=== PATIENT | male | born 1960 | race Caucasian/White ===

== ENCOUNTER 2016-11-08 11:50 | Emergency (ER) | payer OTHER ==
[~2016-11-08] VITALS: Ht 180.3 cm; Wt 97.1 kg
[~2016-11-08 11:50] MED LIST: ALBUAER2 INH; ASPEC81 PO; CLX20 PO; LEVO125T4 PO; LOSA100T66 PO; LPT/20 PO; QUET5TAB PO
[2016-11-08 11:56] VITALS: TEMP 36.7; Ht 180.3 cm; Wt 97.1 kg
[2016-11-08] MEDS ORDERED: ACETAMINOPHEN 500 MG TAB PO STA (12:14)
[2016-11-08] MEDS ORDERED: CLX40 PO (12:24)
[2016-11-08] MEDS ORDERED: FLUT1INH (12:24)
[2016-11-08] MEDS ORDERED: ASPI-435 PO (12:24)
[2016-11-08] MEDS ORDERED: VNTHFA/IN INH (12:24)
--- NOTE | 2016-11-08 12:31 | EMERGENCY ROOM VISIT NOTE ---
ED Visit Note First contact with patient: 12:02 CHIEF COMPLAINT: Foot pain HISTORY OF PRESENT ILLNESS: This 56-year-old male patient presents to the emergency department complaining of swelling and pain in the left great toe after dropping a 30 lb iron clamp on his toe. He was wearing boots at the time. The patient rates the pain as throbbing and 6/10. The patient has had no relief of the pain. The patient is able to walk on his heel, but cannot put weight on the toe. No numbness or weakness. No ankle pain. There are no lacerations of the foot. The patient is able to move all of their toes and their ankle without pain. No previous fracture to this foot. REVIEW OF SYSTEMS: GENERAL: A 6 system review of systems was completed with positives and pertinent negatives in the HPI. ALLERGIES: See chart MEDICATIONS: See chart PMH: See chart SOCIAL HISTORY: See chart PHYSICAL EXAM: Vital Signs: Reviewed Nurse's notes, vital signs stable. GENERAL : Pleasant and cooperative, in no acute distress, but appears in pain, well- developed, well-nourished. MUSCULOSKELATAL: There is no visual deformity of the left foot. There is no erythema but there is ecchymosis and swelling of the left great toe. There is no warmth. There is tenderness and swelling over the entire left great toe. There is no tenderness over the lateral or medial malleolus. No tenderness of the tib/fib. The range of motion of the left great toe is mildly limited secondary to pain. There is no tenderness over the plantar fascia. The skin is intact and there are no lacerations or puncture wounds. Dorsalis pedis pulse 2+. Capillary refill less than 2 seconds. EMERGENCY DEPARTMENT COURSE: I examined the patient. An X-ray of the left foot and great toe was reviewed by myself and radiologist and reveals acute fracture. The patient was placed in fracture shoe. He declined crutches. The patient was discharged home in good condition. Problem List Medical Problems: (1) Bronchitis Status: Resolved (2) COPD (chronic obstructive pulmonary disease) Status: Chronic (3) Hyperlipidemia Nec/Nos Status: Chronic (4) Hypertension Status: Chronic (5) Hypothyroidism Nos Status: Chronic (6) Pneumonia Status: Resolved Current/Historical Medications Scheduled Albuterol Hfa (Ventolin Hfa), 2-4 PUFFS INH Q6H Aspirin (Aspirin 81), 81 MG PO DAILY Atorvastatin (Atorvastatin Calcium), 20 MG PO DAILY Citalopram (Citalopram Hydrobromide), 40 MG PO DAILY Levothyroxine Sodium (Levothyroxine Sodium), 125 MCG PO DAILY Losartan Potassium & Hydrochlo (Losartan Potassium/Hydroc), 1 TAB PO DAILY Miscellaneous Medications Fluticasone Furoate-Vilanterol (Breo Ellipta) Allergies Coded Allergies: No Known Allergies (Verified , 11/08/16) Vital Signs Date Time Temp Pulse Resp B/P (MAP) Pulse Ox O2 Delivery O2 Flow Rate FiO2 11/08/16 14:28 54 16 182/86 94 11/08/16 11:56 36.7 61 17 164/75 96 Room Air Medications Administered Medications (Trade) Dose Ordered Sig/Lyle Route Start Time Stop Time Status Last Admin Dose Admin Acetaminophen (Tylenol Tab) 1,000 mg NOW STAT PO 11/08/16 12:14 11/08/16 12:17 DC 11/08/16 12:25 1,000 MG Departure Information Impression Primary Impression: Closed fracture of left great toe Dispostion Home / Self-Care Condition GOOD Referrals Shelley Montero D.O. (PCP) Garcia Guerrier, DO Patient Instructions ED Fx Toe Closed, My [facility] Additional Instructions Ice and elevation for the next two days. Stay off of the left foot as much as possible for the next few days to allow for swelling to go down. Ibuprofen, 600mg and Tylenol 1000 mg every 6 hours for the pain. Avoid weight bearing and use post-op shoe until the pain subsides and you can walk without a limp. Follow up with the orthopedic surgeon in 5-7 days for further management of your broken toe. Work Instructions Return To Work: after follow-up (orthopedics ) Problem Qualifiers Primary Impression: Closed fracture of left great toe Encounter type: initial encounter Phalanx: distal Fracture alignment: nondisplaced Qualified Codes: S92.425A - Nondisplaced fracture of distal phalanx of left great toe, initial encounter for closed fracture
--- NOTE | 2016-11-08 13:12 | DIAGNOSTIC IMAGING REPORT ---
LEFT TOE(S) MIN 2 VIEWS, LEFT FOOT MIN 3 VIEWS ROUTINE HISTORY:56 yearsMaledropped iron clamp on great toe, dorsum of foot COMPARISON: None available. TECHNIQUE: 3 views of the left great toe and 3 views of the left foot. FINDINGS: Foot: Comminuted fracture of the first distal phalanx is noted with moderate soft tissue swelling. There is no additional acute fracture or dislocation identified. There is mild spurring of the plantar insertion site about the calcaneus. Negative for radiopaque foreign body. Toes: There is a comminuted fracture involving the mid and distal portions of the first distal phalanx with moderate degree of surrounding soft tissue swelling. No significant displacement, however the lateral view is suboptimal. No intra-articular extension is seen. IMPRESSION: 1. Comminuted nondisplaced acute first distal phalanx fracture. 2. No additional acute fracture or dislocation identified involving the left foot. The above report was generated using voice recognition software. It may contain grammatical, syntax or spelling errors. Electronically signed by: Dawson Smith M.D. 11/08/2016 1:11 PM Dictated Date/Time: 11/08/2016 1:08 PM
[2016-11-08 14:28] VITALS: BP 182/86; PULSE 54; O2SAT 94
[2016-12-13] MEDS ORDERED: ATOR80TA PO (06:57)
[2016-12-13] MEDS ORDERED: UMEC1INH INH (06:57)
[2016-12-13] MEDS ORDERED: ISOS30TA3 PO (06:57)
[2016-12-13] MEDS ORDERED: ESCI1TAB10 PO (06:57)
[2016-12-13] MEDS ORDERED: TRMO2580 TOP (06:57)
[2016-12-13] MEDS ORDERED: PRLSR20 PO (06:57)
[2016-12-13] MEDS ORDERED: MECL1TAB42 PO (06:57)
== END 2016-11-08 14:30 | disposition home or self-care (01) ==
LOC: C.EDB 11:52 → C.EDD 14:30
DX: S92.425A Nondisplaced fracture of distal phalanx of left great toe, initial encounter for closed fracture (principal); W22.8XXA Striking against or struck by other objects, initial encounter; E03.9 Hypothyroidism, unspecified; I10 Essential (primary) hypertension; E78.5 Hyperlipidemia, unspecified

== ENCOUNTER → 2016-12-13 | Day surgery (SDC) | payer OTHER ==
[~2016-12-13] VITALS: Ht 177.8 cm; Wt 94.0 kg
[~2016-12-13] MED LIST changes: +ACETAMINOPHEN 325 MG TAB PO PRN; -ALBUAER2 INH; -ASPEC81 PO; +ASPI-435 PO; +ATOR80TA PO; -CLX20 PO; +CLX40 PO; +ESCI1TAB10 PO; +FENTANYL CITRATE INJ 50 MCG/1 ML 2 ML VIAL ONE; +FLUT1INH; +HEPARIN SOD (PORCINE) 1000 UNIT/ML 10 ML VIAL ONE; +ISOS30TA3 PO; +ISOSORBIDE MONONITRATE 30 MG TABCR PO ONE; +MECL1TAB42 PO; +MIDAZOLAM HCL 1 MG/ML 2ML VIAL ONE; +NITROGLYCERIN/D5W 100MCG/ML 20ML SYR ONE; +NiCARDipine HCL INJ 2.5 MG/ML 10 ML AMP ONE; +ONDANSETRON INJ 2 MG/ML 2 ML VIAL IV PRN; +PRLSR20 PO; -QUET5TAB PO; +SODIUM CHLORIDE 0.9% 1000ML 250 ML IV PRN; +TRMO2580 TOP; +UMEC1INH INH; +VNTHFA/IN INH
[2016-12-13 07:14] VITALS: BP 188/71; PULSE 58; TEMP 36.8; O2SAT 96; Ht 177.8 cm; Wt 94.0 kg
--- NOTE | 2016-12-13 09:36 | Procedure Note ---
Pre-Mod Sedation Assessment General Date of Moderate Sedation: Dec 13, 2016. Vital Signs: Vital Signs Past 12 Hours Date Time Temp Pulse Resp B/P (MAP) Pulse Ox O2 Delivery O2 Flow Rate FiO2 12/13/16 09:24 52 16 140/80 (100) 96 Room Air 12/13/16 07:14 36.8 58 16 188/71 96 Room Air Review Cardiovascular: regular rate, rhythm, no edema, no gallop, no JVD Abdomen: normal bowel sounds, non tender, soft Lungs: no respiratory distress, no accessory muscle use, + wheezing (mild end expiratory left sided wheeze) Pre-Sedation Airway Assessment Oral Cavity: Dentures Short Thick Neck: No Hx of Sleep Apnea: No Smoking Status: Current Every Day Smoker Mallampati Classification: Class III ASA Classification: Class III Procedure Planning Contraindications-for Mod Sed: None Yes Notes The planned sedation has been discussed with the patient and consent obtained. I have identified the patient, determined the appropriateness of sedation and have assessed the patient immediately prior to the procedure. All medicine(s) and interventions are by my order.
--- NOTE | 2016-12-13 09:37 | Procedure Note ---
Post-Mod Sedation Assessment General Date of Moderate Sedation Dec 13, 2016. Vital Signs: Vital Signs Past 12 Hours Date Time Temp Pulse Resp B/P (MAP) Pulse Ox O2 Delivery O2 Flow Rate FiO2 12/13/16 09:24 52 16 140/80 (100) 96 Room Air 12/13/16 07:14 36.8 58 16 188/71 96 Room Air Review - Discharge Criteria Vital Signs Stable: Yes Alert/Oriented/Conversant: Yes Returned to Baseline Mental St: Yes Nausea Absent/Minimal: Yes Pain/Discomfort/Absent/Minimal: Yes Normal/Baseline Respirations: Yes Active Bleeding?: No Pt Received D/C Instructions: Yes Prescriptions Given: None Specific Proced. D/C Criteria Distal Pulses Present (Cardiac: Yes Groin site assessed-Card Cath: N/A Voided Prior To Discharge: N/A Discharged Patients Adult Escort/Transportation: Yes
--- NOTE | 2016-12-13 09:58 | Cardiac Catheterization ---
Procedure Note Procedure Date Dec 13, 2016. Pre-Procedure Diagnosis Angina, Positive Stress Test AUC Score 8 Post-Procedure Diagnosis Moderate CAD Procedure(s) Performed Coronary Angiography, Left Heart Cath Caretaker Dr. Montero Barrel Tester And Drainer(s) Ricky RTR Estimated Blood Loss 5cc Medication(s) Fentanyl, Heparin, Nicardipine, Nitroglycerin, Versed, Lidocaine 1% Summary of Findings 50% proximal RCA Hemodynamics Rest Ao: 127/61/88 Final Ao: 145/65/95 LV: 136/7/12 Recommendations Medical therapy and/or Counseling Specimens None Radiation Exposure (mGy) 1751 Contrast (mls) 50 Anesthesia Moderate sedation. Start 0848. Stop 0924, Sedation RN: Jun King Procedural Complication(s) None Disposition Associate Store Leader Holding/Recovery ACC Data Cardiac Status Clinical evaluation leading to the procedure CAD Presntation: Positive Stress Test Anginal Classification: CCS II Heart Failure: No Cardiogenic Shock w/in 24Hrs: No Cardiac Arrest w/in 24Hrs: No Imaging studies past 6 months: No Stress studies past 6 months: Yes Standard Exercise Stress Test: No Stress Echocardiogram: No Stress Testing w/SPECT MPI: Yes - Indeterminant Cardiac CTA: No Coronary Anatomy Dominant: Right Left Main (% Stenosis): Ostial (10%) LAD (% Stenosis): Proximal (10%), Mid (10%), Distal (10%) D1 (% Stenosis): Proximal (30%) D2 (% Stenosis): Proximal (30%) D3 (% Stenosis): Ostial (20%) Circumflex (% Stenosis): Proximal (10%), Mid (20%) OM1 (% Stenosis): Normal RCA (% Stenosis): Proximal (50%, significant tortuosity), Mid (20%), Distal (10 %) R PDA (% Stenosis): Proximal (10%) R PL1 (% Stenosis): Ostial (30%), Proximal (10%), Mid (30%) R PL2 (% Stenosis): Ostial (20%) Diagnostic Status: Elective Closure Device Percutaneous Entry Location: Radial Closure Device: Radial Band Recommendations: Medical therapy and/or Counseling Intraprocedure Events Significant Dissection: No Perforation: No
--- NOTE | 2016-12-13 10:04 | Discharge Instructions ---
Discharge Instructions Procedure Procedure Date: Dec 13, 2016. Reason for Visit: Abnormal Nucular Stress Test, *Dr Montero Doing*. Discharge Discharge Date: Dec 13, 2016. Discharge Diagnosis: Moderate CAD Last Recorded Wt (Kilograms): 94 Anesthesia Post Anesthesia Instructions: If you have had General Anesthesia or IV Sedation: * Do not drive today. * Resume driving when surgeon permits. * Do not make important decisions or sign legal documents today. * Call surgeon for: 1. Temperature elevations greater than 101 degrees F. 2. Uncontrollable pain. 3. Excessive bleeding. 4. Persistent nausea and vomiting. 5. Medication intolerance (nausea, vomiting or rash). * For nausea and vomiting use only clear liquids such as: tea, soda, bouillon until nausea subsides, then gradually increase diet as tolerated. * If you have any concerns or questions, call your surgeon's office. If physician is unavailable and it is an emergency, call 911 or go to the nearest emergency room. Instructions Activity Recommendations: limitations as noted below Return to School/Work: with the following limitations Recommended Home Diet: resume previous diet, low sodium, low cholesterol Allergies: Coded Allergies: No Known Allergies (Verified , 11/08/16) Provider Instructions ACTIVITY RECOMMENDATIONS: Excess manipulation of the wrist should be avoided for the next 24-48 hours. * No lifting over 2 pounds (approximately a 1/2 gallon of milk) with the utilized arm for 24 hours. * No strenuous activity such as bowling or tennis for 3 days. * Keep the site of the procedure covered with a bandage for 24 hours. *You may shower the day after the procedure. Do not take a tub bath or submerge the puncture site in water for the next 3 days. *Do not operate any motorized equipment for 3 days. SPECIAL CARE INSTRUCTIONS: The site may be slightly bruised and sore following your procedure. Should any of the following occur, contact the DrDennise who performed your procedure. 1. Redness/inflammation, swelling, chills, or fever, or colored drainage at procedure site within 3-7 days after your procedure. 2. Coldness, discoloration, ongoing numbness, severe pain, or swelling. Expect mild tingling of hand and tenderness at the puncture site for up to three days. If this persists beyond three days, or other symptoms develop, notify the DrDennise who performed your procedure. BLEEDING: If the procedure site on your wrist begins to bleed, do not panic 1. Place 1 or 2 fingers firmly just slightly above the insertion site to stop the bleeding. You may be able to feel your pulse as you hold pressure. 2. Lift your finger after 5 minutes to see if the bleeding has stopped. 3. Once the bleeding has stopped, gently wipe the wrist area clean with a bandage. * If the bleeding from your wrist does not stop after 10 minutes, or if there is a large amount of bleeding or spurting, call 911 ([address] drive yourself to the hospital). SKIN IRRITATION: * You may experience some redness and/or swelling in the area where radiation was administered. If any skin irritation occurs, please contact your family physician. FOLLOW UP VISIT: Keep any scheduled doctor appointments. Follow Up Additional Instructions: Begin taking Imdur in the AM daily. Follow-up with: Dr. Coffey as scheduled. Blessing Velasquez Recommendations: Call your doctor if: * Temperature above 101 degrees * Pain not relieved by pain medicine ordered * There is increased drainage or redness from any incision * You have any unanswered questions or concerns. Your Doctors Instructions noted above were prepared by provider Andre Montero. Patient Signature Section: Patient Instructions Signature Page Luis Velázquez Patient (or Guardian) Signature/Date: I have read and understand the instructions given to me by my caregivers. Caregiver/RN/Doctor Signature/Date: The above-named patient and/or guardian has received patient instructions on this date. + Original Patient Signature Page (only) stays with chart. Please make copy for patient.
--- NOTE | 2016-12-13 11:05 | Progress Note ---
Progress Note Date of Service Dec 13, 2016. Progress Note Patient is excused from work duties until 12/18/16 due to recent medical procedure.
[2016-12-13 11:45] VITALS: BP 150/79; PULSE 55; O2SAT 99
== END | disposition home or self-care (01) ==
LOC: C.CATH 06:52
PROVIDERS: ATTEND Physician Assistant
DX: I25.10 Atherosclerotic heart disease of native coronary artery without angina pectoris (principal); I10 Essential (primary) hypertension; J44.9 Chronic obstructive pulmonary disease, unspecified; F17.210 Nicotine dependence, cigarettes, uncomplicated; E03.9 Hypothyroidism, unspecified; G47.30 Sleep apnea, unspecified; K21.9 Gastro-esophageal reflux disease without esophagitis; E78.5 Hyperlipidemia, unspecified; Z79.82 Long term (current) use of aspirin; Z83.3 Family history of diabetes mellitus

== ENCOUNTER 2022-05-05 03:15 | Inpatient (IN) ==
[2022-05-05 04:26] LABS: Basophils # (auto) 0.08 K/uL (0-0.2); Basophils % (auto) 0.4 %; Eosinophils # (auto) 0.17 K/uL (0-0.50); Eosinophils % (auto) 0.9 %; Hemoglobin 15.8 g/dl (14.0-18.0); Immature Granulocytes # (auto) 0.06 K/uL (0.00-0.02); Immature Granulocytes % (auto) 0.3 %; Lymphocytes # (auto) 1.98 K/uL (1.2-3.4); Lymphocytes % (auto) 10.6 %; Mean Corpuscular Hemoglobin 30.9 pg (25.0-34.0); Mean Corpuscular Hgb Conc 35.1 g/dL (32.0-36.0); Mean Corpuscular Volume 87.9 fL (80.0-100.0); Mean Platelet Volume 9.6 fL (9.4-12.4); Monocytes # (auto) 1.01 K/uL (0.24-0.82); Monocytes % (auto) 5.4 %; Neutrophils # (auto) 15.38 K/uL (1.4-6.5); Neutrophils % (auto) 82.4 %; Platelet Count 283 K/uL (130-400); RDW Coefficient of Variation 13.3 % (11.5-14.5); RDW Standard Deviation 43.1 fL (36.4-46.3); Red Blood Count 5.12 M/uL (4.63-6.08); White Blood Count 18.68 K/ul (4.8-10.8)
[2022-05-05 04:29] LABS: Appearance Urine Cloudy (Clear); Bacteria Urine Automated 4+ (Negative); Bilirubin Urine Negative (Negative); Blood Urine 3+ (Negative); Color Urine Yellow; Epithelial Cell Urine Auto 0-5 /lpf (0-5); Glucose Urine UA 3+ (Negative); Ketones Urine Negative (Negative); Leukocyte Esterase Urine 2+ (Negative); Nitrite Urine Positive (Negative); Protein Urine 2+ (Negative); RBC Urine Automated >30 /hpf (0-4); Specific Gravity Urine 1.021 (1.000-1.030); Urobilinogen Urine Negative (Negative); WBC Urine Automated >30 /hpf (0-5)
[2022-05-05] MEDS ORDERED: KETOROLAC 30 MG/ML VIAL IV ONE (04:34)
--- NOTE | 2022-05-05 04:34 | Emergency Department Note ---
Impression & Plan Cystitis, Acute pyelitis Admit to the [facility] ED Provider Note NAME: KRYSTIN BRANDT AGE: 61 SEX: M ARRIVES VIA: Walk-In INFORMANT: Patient ED PROVIDER(S): Inez Wynn DO CHIEF COMPLAINT: Bilateral flank pain PLAN: Disposition: Admit to the [facility] Condition: Fair MEDICAL DECISION MAKING: This is a 61-year-old male patient who presents to the emergency department with sudden onset of bilateral flank pain this evening. The patient took 2 Tylenol with no relief. Patient was diagnosed 2 weeks ago with a bladder infection and treated with antibiotics. The infection seem to be resolved but he developed dysuria again 2 days ago. Urinalysis reveals signs of infection again White blood cell count is 18.6. CT scan of the abdomen/pelvis nausea and involvement of both the bladder and the ureters. Patient was treated with IV Zosyn as previous urine culture shows E. coli which is susceptible to piperacillin/tazobactam. I believe the patient's initial infection was never fully treated on the outpatient basis. After review of the information above and other included data, I feel the patient will require admission to the hospital for further IV antibiotics. I discussed the case with the [facility] group and they will evaluate for further inpatient care. Triage Nursing notes reviewed and agree with them. Vital Signs: reviewed and remarkable for hypertension Differential diagnosis: Cystitis, pyelonephritis, ureteral colic, sepsis ER treatment provided: IV Toradol IV normal saline IV piperacillin/tazobactam Diagnostics interpreted by me: Laboratory studies: See below Imaging studies: As per radiology CT scan of the abdomen pelvis: See report HPI: 61/M arrives for evaluation of bilateral flank pain. Patient had a fairly sudden onset of bilateral flank pain around 7:30 PM this evening. He took 2 Tylenol with no relief. Patient was diagnosed with UTI/cystitis 2 weeks ago and was initially treated with Bactrim. Urine culture grew out E. coli which was not susceptible to Bactrim so was therefore switched to Keflex. This antibiotic was finished approximately 5 days ago. However, the patient began to develop dysuria again just 2 days ago. PAST MEDICAL HISTORY:See Below PAST SURGICAL HISTORY:See Below FAMILY HISTORY:See Below SOCIAL HISTORY:See Below HOME MEDICATIONS: See list ALLERGIES: None VITALS:See Below PHYSICAL EXAMINATION: HEENT: Head - normocephalic and atraumatic. Pupils are equal, round, and reactive to light. Extraocular eye muscles are intact, and sclera are anicteric. Nose - moist nasal mucosa without discharge. Mouth - moist buccal mucosa. Oropharynx is nonerythematous and there is no tonsillar exudate or edema noted. Neck: Supple; no JVD or cervical lymphadenopathy Heart: Regular rate and rhythm. There is a normal S1 and S2 with no murmurs, clicks, or gallops appreciated. Lungs: Clear to auscultation bilaterally with no wheezes, rales, or rhonchi. Abdomen: Soft, completely nontender, nondistended, with good bowel sounds. There are no palpable pulsatile masses or hepatosplenomegaly. There is no guarding, rigidity, or rebound noted. Back: Bilateral costovertebral angle tenderness on palpation. Extremities: No evidence of cyanosis, clubbing, or edema. There are easily palp able peripheral pulses. Skin: warm and dry with good turgor and no rashes. ED COURSE: Times/Reassessments: 350: The patient was evaluated in room A-3. A complete history and physical was performed. An IV lock was initiated and labs were drawn as above. Patient was bolused with IV normal saline solution. He was given a dose of IV Toradol for pain. Urine specimen was collected. The patient went for CT scan of the abdomen/pelvis. Patient was given a dose of IV antibiotics I reviewed the results of the laboratory studies with the patient and discussed the case with the [facility]. Inez Wynn DO Past Med/Surg History Medical History (Updated 05/05/22 @ 16:19 by Valentine Chan PA-C) Anxiety COPD (chronic obstructive pulmonary disease) Depression Diabetes mellitus, type II DM type 2 (diabetes mellitus, type 2) diet controlled Dyslipidemia GERD (gastroesophageal reflux disease) Hypertension Hypothyroidism Osteoarthritis Surgical History History of arthroscopy of left knee History of cardiac cath 1 year ago - [facility] - no stents/angioplasty History of colonoscopy with polypectomy History of esophagogastroduodenoscopy (EGD) History of hand surgery Lt History of tooth extraction Family History Uncle Family history of diabetes mellitus Brother Family history of diabetes mellitus Mother Pancreatic cancer Social History Smoking Status: Current every day smoker Tobacco Type: Cigarettes Cigarettes Per Day: 1.5 ppd; Second Hand Exposure: No; Do You Dip or Chew Tobacco: No; Tobacco Cessation Education Requested by Patient: Yes Hx Alcohol Use: No Hx Substance Use: No Preferred Language: Georgian Communication Ability: Effective Farm Advisor Required: No Beliefs That Will Affect Care: None Current Living Situation: Spouse Other Information That Helps Us Care for You: No Feels Safe at Home: Yes Safety Concerns: Feels Safe At This Time Assistive Devices: Denture - Upper, Denture - Lower, Glasses and Oxygen - at Night Assistive Devices Comment: 2L at night Allergies Allergies Allergy/AdvReac Type Severity Reaction Status Date / Time No Known Allergies Allergy Mild Verified 12/02/20 13:13 Home Meds Home Medications Medication Instructions Recorded Confirmed albuterol sulfate 90 mcg/actuation 2 - 4 puff inhalation Q6H PRN 01/28/18 05/05/22 aerosol inhaler (Ventolin HFA) Shortness Of Breath aspirin 81 mg tablet,delayed 81 mg PO QAM 01/28/18 05/05/22 release (Gerson Low Dose Aspirin) atorvastatin 80 mg tablet (Lipitor) 80 mg PO QPM 01/28/18 05/05/22 escitalopram oxalate 20 mg tablet 20 mg PO QAM 01/28/18 05/05/22 isosorbide mononitrate 30 mg 30 mg PO QAM 01/28/18 05/05/22 tablet,extended release 24 hr levothyroxine 150 mcg tablet 150 mcg PO QAM 01/28/18 05/05/22 acetaminophen 650 mg 1,300 mg PO Q12H PRN Pain 12/03/18 05/05/22 tablet,extended release (Tylenol Arthritis Pain) amlodipine 2.5 mg tablet 7.5 mg PO DAILY 12/02/20 05/05/22 hydrochlorothiazide 25 mg tablet 25 mg PO DAILY 12/02/20 05/05/22 losartan 100 mg tablet 100 mg PO DAILY 12/02/20 05/05/22 metformin 500 mg tablet,extended 500 mg PO DAILY 12/02/20 05/05/22 release 24 hr mometasone 50 mcg/actuation nasal 2 spray intranasal DAILY 12/02/20 05/05/22 spray Previous Rx's Medication Instructions Recorded sulfamethoxazole 800 1 tab PO BID #20 tabs 04/17/22 mg-trimethoprim 160 mg tablet (Bactrim DS) Results & Data (ED) Vital Signs Vital Signs - 24 hr 05/05/22 03:20 05/05/22 04:17 05/05/22 06:00 Temperature 36.5 C Temperature Source Temporal Artery Scan Pulse Rate 74 Pulse Rate [Finger] 66 Pulse Rhythm Regular Pulse Strength Normal Respiratory Rate 18 18 Respiratory Effort / Characteristics Non-Labored Spontaneous Respiratory Depth Normal Respiratory Pattern Regular Blood Pressure 198/89 H Blood Pressure [Left Arm] 155/82 H Blood Pressure Mean 125 Blood Pressure Mean [Left Arm] 106 Blood Pressure Position Sitting Pulse Oximetry 99 98 97 Oxygen Delivery Method Room Air Room Air Room Air Sepsis Recent Fever Within 48 Hours No Sepsis New/Unexplained Change in Mental Status No Sepsis Action Taken by Nursing No Action Required Laboratory Data Result diagrams: 05/05/22 03:40 05/05/22 03:40 Lab Results 05/05/22 05/05/22 05/05/22 Range/Units 03:40 03:40 03:40 WBC 18.68 H (4.8-10.8) K/ul RBC 5.12 (4.63-6.08) M/uL Hgb 15.8 (14.0-18.0) g/dl Hct 45.0 (40.1-51.0) % MCV 87.9 (80.0-100.0) fL MCH 30.9 (25.0-34.0) pg MCHC 35.1 (32.0-36.0) g/dL RDW Std Deviation 43.1 (36.4-46.3) fL RDW Coeff of Rodriguez 13.3 (11.5-14.5) % Plt Count 283 (130-400) K/uL MPV 9.6 (9.4-12.4) fL Immature Gran % (Auto) 0.3 % Neut % (Auto) 82.4 % Lymph % (Auto) 10.6 % Moore % (Auto) 5.4 % Eos % (Auto) 0.9 % Baso % (Auto) 0.4 % Neut # (Auto) 15.38 H (1.4-6.5) K/uL Lymph # (Auto) 1.98 (1.2-3.4) K/uL Moore # (Auto) 1.01 H (0.24-0.82) K/uL Eos # (Auto) 0.17 (0-0.50) K/uL Baso # (Auto) 0.08 (0-0.2) K/uL Immature Gran # (Auto) 0.06 H (0.00-0.02) K/uL Sodium 135 L (136-145) mmol/L Potassium 3.6 (3.5-5.1) mmol/L Chloride 99 (98-107) mmol/L Carbon Dioxide 29 (21-32) mmol/L Anion Gap 7 (3-11) BUN 19 (6-23) mg/dl Creatinine 1.18 (0.6-1.4) mg/dl Est Cr Clr Drug Dosing 75.9 ml/min Est GFR ( Amer) 77.8 ml/min Est GFR (Non-Af Amer) 67.1 ml/min BUN/Creatinine Ratio 16.1 (10-20) Glucose 153 H (70-99(Fasting)) mg/dl Lactate (0.4-2.0) mmol/L Calcium 10.9 H (8.5-10.1) mg/dl Total Bilirubin 0.5 (0.2-1.0) mg/dl AST 17 (13-39) U/L ALT 28 (7-52) U/L Alkaline Phosphatase 85 (34-104) U/L Total Protein 8.1 (6.0-8.3) gm/dl Albumin 4.6 (3.4-5.0) gm/dl Globulin 3.5 (2.5-4.0) gm/dl Albumin/Globulin Ratio 1.3 (0.9-2) Procalcitonin (0-0.5) ng/ml Urine Color Yellow Urine Appearance Cloudy A (Clear) Urine pH 6.0 (4.5-7.5) Ur Specific Merkel 1.021 (1.000-1.030) Urine Protein 2+ H (Negative) Urine Glucose (UA) 3+ H (Negative) Urine Ketones Negative (Negative) Urine Blood 3+ H (Negative) Urine Nitrite Positive A (Negative) Urine Bilirubin Negative (Negative) Urine Urobilinogen Negative (Negative) Ur Leukocyte Esterase 2+ H (Negative) Urine WBC (Auto) >30 H (0-5) /hpf Urine RBC (Auto) >30 H (0-4) /hpf U Hyaline Cast (Auto) 1-5 (0-5) /lpf U Epithel Cells (Auto) 0-5 (0-5) /lpf Urine Bacteria (Auto) 4+ H (Negative) SARS-CoV-2, RNA, NAAT (NEGATIVE) 05/05/22 05/05/22 05/05/22 Range/Units 07:17 07:17 07:23 WBC (4.8-10.8) K/ul RBC (4.63-6.08) M/uL Hgb (14.0-18.0) g/dl Hct (40.1-51.0) % MCV (80.0-100.0) fL MCH (25.0-34.0) pg MCHC (32.0-36.0) g/dL RDW Std Deviation (36.4-46.3) fL RDW Coeff of Rodriguez (11.5-14.5) % Plt Count (130-400) K/uL MPV (9.4-12.4) fL Immature Gran % (Auto) % Neut % (Auto) % Lymph % (Auto) % Moore % (Auto) % Eos % (Auto) % Baso % (Auto) % Neut # (Auto) (1.4-6.5) K/uL Lymph # (Auto) (1.2-3.4) K/uL Moore # (Auto) (0.24-0.82) K/uL Eos # (Auto) (0-0.50) K/uL Baso # (Auto) (0-0.2) K/uL Immature Gran # (Auto) (0.00-0.02) K/uL Sodium (136-145) mmol/L Potassium (3.5-5.1) mmol/L Chloride (98-107) mmol/L Carbon Dioxide (21-32) mmol/L Anion Gap (3-11) BUN (6-23) mg/dl Creatinine (0.6-1.4) mg/dl Est Cr Clr Drug Dosing ml/min Est GFR ( Amer) ml/min Est GFR (Non-Af Amer) ml/min BUN/Creatinine Ratio (10-20) Glucose (70-99(Fasting)) mg/dl Lactate 0.7 (0.4-2.0) mmol/L Calcium (8.5-10.1) mg/dl Total Bilirubin (0.2-1.0) mg/dl AST (13-39) U/L ALT (7-52) U/L Alkaline Phosphatase (34-104) U/L Total Protein (6.0-8.3) gm/dl Albumin (3.4-5.0) gm/dl Globulin (2.5-4.0) gm/dl Albumin/Globulin Ratio (0.9-2) Procalcitonin < 0.05 (0-0.5) ng/ml Urine Color Urine Appearance (Clear) Urine pH (4.5-7.5) Ur Specific Merkel (1.000-1.030) Urine Protein (Negative) Urine Glucose (UA) (Negative) Urine Ketones (Negative) Urine Blood (Negative) Urine Nitrite (Negative) Urine Bilirubin (Negative) Urine Urobilinogen (Negative) Ur Leukocyte Esterase (Negative) Urine WBC (Auto) (0-5) /hpf Urine RBC (Auto) (0-4) /hpf U Hyaline Cast (Auto) (0-5) /lpf U Epithel Cells (Auto) (0-5) /lpf Urine Bacteria (Auto) (Negative) SARS-CoV-2, RNA, NAAT NEGATIVE (NEGATIVE) Administered Medications Sodium Chloride (Nss 1000ml) 1,000 mls @ 100 mls/hr IV .Q10H CORBIN Stop: 05/05/22 19:55 Last Admin: 05/05/22 10:29 Dose: 100 mls/hr Documented By: YEN Piperacillin Sod/Tazobactam (Sod 3.375 gm/ Dextrose) 115 mls @ 28.75 mls/hr IV Q8H CORBIN; Protocol Stop: 05/15/22 10:59 Last Admin: 05/05/22 18:17 Dose: 28.8 mls/hr Documented By: Infusion: 05/05/22 14:55 Dose: 0 mls/hr Documented By: Admin: 05/05/22 10:47 Dose: 28.8 mls/hr Documented By: YEN Insulin Aspart (Insulin Aspart Per Unit) 0 units SC ACHS CORBIN Stop: 06/04/22 11:29 Last Admin: 05/05/22 18:16 Dose: 5 units Documented By: VIVIANA Co-signed By: FELIPE Admin: 05/05/22 13:55 Dose: 1 units Documented By: YEN Co-signed By: CHERI Miscellaneous (Remove Nicoderm Patch) 1 each N/A DAILY@0859 CORBIN Stop: 06/04/22 10:13 Last Admin: 05/05/22 10:56 Dose: Not Given Documented By: YEN Nicotine (Nicotine 21 Mg/24 Hr Tdsy) 21 mg TD QAM [facility] Stop: 06/04/22 10:09 Last Admin: 05/05/22 10:47 Dose: 21 mg Documented By: YEN Tamsulosin HCl (Tamsulosin Hcl 0.4 Mg Cap) 0.4 mg PO QAM [facility] Stop: 06/04/22 16:29 Last Admin: 05/05/22 17:06 Dose: 0.4 mg Documented By: VIVIANA Discontinued Medications Amlodipine Besylate (Amlodipine Besylate 5 Mg Tab) 7.5 mg PO NOW ONE Stop: 05/05/22 09:43 Last Admin: 05/05/22 10:26 Dose: 7.5 mg Documented By: YEN Escitalopram Oxalate (Escitalopram Oxalate 20 Mg Tab) 20 mg PO NOW STA Stop: 05/05/22 09:43 Last Admin: 05/05/22 10:26 Dose: 20 mg Documented By: YEN Hydrochlorothiazide (Hydrochlorothiazide 25 Mg Tab) 25 mg PO NOW STA Stop: 05/05/22 09:43 Last Admin: 05/05/22 10:26 Dose: 25 mg Documented By: YEN Sodium Chloride (Nss 1000ml) 1,000 mls @ 999 mls/hr IV .Q1H1M ONE Stop: 05/05/22 06:02 Last Infusion: 05/05/22 06:21 Dose: 0 mls/hr Documented By: Admin: 05/05/22 05:17 Dose: 999 mls/hr Documented By: DANY Piperacillin Sod/Tazobactam Sod (Zosyn) 4.5 gm in 120 mls @ 240 mls/hr IV NOW ONE Stop: 05/05/22 06:42 Last Infusion: 05/05/22 06:47 Dose: 0 mls/hr Documented By: Admin: 05/05/22 06:16 Dose: 240 mls/hr Documented By: DANY Ioversol (Optiray 350 100ml) 82 ml IV ONCE ONE Stop: 05/05/22 05:09 Last Admin: 05/05/22 05:08 Dose: 82 ml Documented By: BLAKE Ketorolac Tromethamine (Ketorolac 30 Mg/Ml Vial) 30 mg IV NOW ONE Stop: 05/05/22 04:35 Last Admin: 05/05/22 04:40 Dose: 30 mg Documented By: DANY Losartan Potassium (Losartan Potassium 50 Mg Tab) 100 mg PO NOW STA Stop: 05/05/22 09:43 Last Admin: 05/05/22 10:26 Dose: 100 mg Documented By: [facility] Imaging Data Radiologist's Impression: Abdomen/Pelvis CT 05/05/22 04:15 CT OF THE ABDOMEN AND PELVIS WITH CONTRAST CLINICAL HISTORY: Bilateral flank pain. Evaluate for pyelonephritis. COMPARISON STUDY: CT of the abdomen and pelvis January 16, 2022. TECHNIQUE: Following IV administration of 82 mL of Optiray, axial images of the abdomen and pelvis were obtained from the lung bases to the proximal femurs. Images were reviewed in the axial, sagittal, and coronal planes. IV contrast was administered without complication. Automated exposure control was utilized for the study. A dose lowering technique was utilized adhering to the principles of ALARA. CT DOSE: 838.50 mGy.cm FINDINGS: Lung bases are unremarkable. No pneumatosis, free air or portal venous gas is present. There is no CT evidence for pyelonephritis. The nephrograms are symmetric. A few subcentimeter bilateral renal lesions are too small to characterize. There is no hydronephrosis. No urinary calculi. Bladder wall thickening with mild adjacent stranding is again noted. This was shown on prior CT April 17, 2022. There has been interval development of urothelial thickening of the bilateral collecting systems and ureters. There is bilateral periureteral stranding. Liver, spleen, adrenal glands and pancreas are unremarkable. No evidence for a bowel obstruction. The appendix is normal. There is no lymphadenopathy. There is no fluid collection. Moderate aortoiliac plaque is present. IMPRESSION: Interval development of urothelial thickening of the bilateral collecting systems and ureters since CT of April 17, 2022 consistent with pyelitis. Findings suggestive of persistent cystitis. No CT evidence for pyelonephritis. No hydronephrosis. No urinary calculi. No abscess. ACT 112: Negative or not required by law. Electronically signed by: Oswald Kasper M.D. 05/05/2022 7:02 AM Discharge Plan Visit Data Chief Complaint: Flank Pain Stated Complaint: SEVERE PAIN ON SIDES, HAD BLADDER INFECTION ED Provider: Inez Wynn Discharge Problem: Cystitis, Acute pyelitis Patient Disposition: Admitted As Inpatient Discharge Instructions Interventions: ED Discharge Assessment Last Done: 05/05/22 09:45
[2022-05-05 04:59] LABS: Albumin Globulin Ratio 1.3 (0.9-2); Albumin Level 4.6 gm/dl (3.4-5.0); BUN Creatinine Ratio 16.1 (10-20); Bilirubin,Total 0.5 mg/dl (0.2-1.0); Calcium 10.9 mg/dl (8.5-10.1); Creatinine Clr Calc Pharmacy 75.9 ml/min; Est GFR (African American) 77.8 ml/min; Est GFR (Non-African American) 67.1 ml/min; Globulin 3.5 gm/dl (2.5-4.0); Potassium 3.6 mmol/L (3.5-5.1); Total Protein 8.1 gm/dl (6.0-8.3)
[2022-05-05] MEDS ORDERED: SODIUM CHLORIDE 0.9% 1000ML 1,000 ML IV ONE (05:02)
[2022-05-05] MEDS ORDERED: OPTIRAY 350 100ml IV ONE (05:08)
[2022-05-05] MEDS ORDERED: PIPERACILLIN/TAZOBACTAM 4.5 GM/120 ML BAG IV ONE (06:13)
--- NOTE | 2022-05-05 07:04 | CT Scan Report ---
CT OF THE ABDOMEN AND PELVIS WITH CONTRAST CLINICAL HISTORY: Bilateral flank pain. Evaluate for pyelonephritis. COMPARISON STUDY: CT of the abdomen and pelvis January 16, 2022. TECHNIQUE: Following IV administration of 82 mL of Optiray, axial images of the abdomen and pelvis we re obtained from the lung bases to the proximal femurs. Images were reviewed in the axial, sagittal, and coronal planes. IV contrast was administered without complication. Automated exposure control wa s utilized for the study. A dose lowering technique was utilized adhering to the principles of ALARA . CT DOSE: 838.50 mGy.cm FINDINGS: Lung bases are unremarkable. No pneumatosis, free air or portal venous gas is present. Ther e is no CT evidence for pyelonephritis. The nephrograms are symmetric. A few subcentimeter bilateral renal lesions are too small to characterize. There is no hydronephrosis. No urinary calculi. Bladder wall thickening with mild adjacent stranding is again noted. This was shown on prior CT April 17, 2022. There has been interval development of urothelial thickening of the bilateral collecting system s and ureters. There is bilateral periureteral stranding. Liver, spleen, adrenal glands and pancreas are unremarkable. No evidence for a bowel obstruction. The appendix is normal. There is no lymphadenopathy. There is no fluid collection. Moderate aortoiliac p laque is present. IMPRESSION: Interval development of urothelial thickening of the bilateral collecting systems and ureters since C T of April 17, 2022 consistent with pyelitis. Findings suggestive of persistent cystitis. No CT ev idence for pyelonephritis. No hydronephrosis. No urinary calculi. No abscess. ACT 112: Negative or not required by law. Electronically signed by: Oswald Kasper M.D. 05/05/2022 7:02 AM
--- NOTE | 2022-05-05 07:46 | History & Physical Report ---
Date of Service May 05, 2022 Assessment & Plan (1) Acute pyelitis: Plan: As above Likely to need procedure as an outpatient (2) Complicated UTI (urinary tract infection): Plan: Recent UTI with E. coli on 17 April treated with Bactrim as an outpatient Developed acute bilateral back pain with dysuria since last evening of 05/04/2022 White count is elevated to 18,000 and UA suggestive of infection CT scan of the abdomen did not show urothelial thickening with pyelitis and chronic cystitis Started with intravenous Zosyn Appreciate urology input and recommendation Tamsulosin was added Urine and blood cultures have been sent He does have an appointment with urologist as an outpatient with [facility] on Sunday Hematuria Could be secondary to cystitis and/or UTI Noted to have 1 episode of hematuria early this Will monitor (3) Diabetes mellitus, type II: Plan: We will hold any oral diabetic pill And continue with SSI (4) GERD (gastroesophageal reflux disease): (5) COPD (chronic obstructive pulmonary disease): Plan: No signs and or symptoms of exacerbation Continue current home medications (6) Hypertension: Plan: Blood pressure remains on the upper side at 161/66 Continue current medication (7) Hypothyroidism: Plan: Continue supplement DVT prophylax SCDs due to hematuria CODE STATUS Full (8) Dyslipidemia: Plan This is a 61-year-old male with PMH of type 2 diabetes, COPD, dyslipidemia, hypothyroidism, sleep apnea with nocturnal hypoxemia, paroxysmal SVT, tobacco use disorder, mood disorder and other medical problems listed below who presents with continued urinary symptoms and found to have complicated UTI. Complicated UTI, acute pyelitis Seen in the ER on 04/17 and found to have UTI and discharged on Bactrim course. Urine culture grew E. coli resistant to Bactrim and patient was called in Keflex for 10-day course ? Unclear whether or not patient switched antibiotics Presenting with urinary symptoms as well as flank and lower back pain, hematuria since yesterday Afebrile, WBC 18, UA abnormal, urine culture pending Non-toxic appearance, not septic CT abd/pelvis with interval development of urothelial thickening of the bilateral collecting systems and ureters since CT of April 17, 2022 consistent with pyelitis. Findings suggestive of persistent cystitis. No CT evidence for pyelonephritis. No hydronephrosis. No urinary calculi. 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 ~70-80 pack years. COPD at baseline. Continue albuterol inh PRN Mood disorder Continue SSRI DVT Ppx: SQ lovenox Code status: FULL PCP: Winston Dispo: Admitted to med/surg Patient seen in collaboration with Dr. Nunez. Please see addendum. History of Present Illness Chief Complaint: Urinary symptoms Primary Care Provider: Shelley Montero, This is a 61-year-old male with PMH of type 2 diabetes, COPD, dyslipidemia, hypothyroidism, sleep apnea with nocturnal hypoxemia, paroxysmal SVT, tobacco use disorder, mood disorder and other medical problems listed below who presents with continued urinary symptoms. Was initially seen in the ER on 04/17 and found to have UTI and discharged on Bactrim course. Urine culture grew E. coli resistant to Bactrim and patient was called in Keflex for 10-day course. Un clear whether or not patient switched to Keflex antibiotic but did feel improved after a week of treatment before symptoms resumed including dysuria, increased urgency and frequency as well as passing some blood clots since yesterday. Also with flank pain and lower back pain since yesterday, prompting visit to ED. Smokes 1-1/2 to 2 packs/day and has done so for the past 40 years. Has been taking all medication as scheduled except he ran out of isosorbide mononitrate. Denies any fever, chills, lightheadedness, chest pain, shortness of breath, nausea, vomiting, abdominal pain. Has had issues with constipation over the past few weeks and has had to take a laxative which has resolved issues. Last had loose stool yesterday. Endorses decreased appetite over the past week in setting of infection. Denies any unintentional weight loss or night sweats. Denies history of known kidney stones. Allergies Allergy/AdvReac Type Severity Reaction Status Date / Time No Known Allergies Allergy Mild Verified 12/02/20 13:13 Home Medications Medication Instructions Recorded Confirmed Type albuterol sulfate 90 mcg/actuation 2 - 4 puff inhalation Q6H PRN 01/28/18 05/05/22 History aerosol inhaler (Ventolin HFA) Shortness Of Breath aspirin 81 mg tablet,delayed 81 mg PO QAM 01/28/18 05/05/22 History release (Gerson Low Dose Aspirin) atorvastatin 80 mg tablet (Lipitor) 80 mg PO QPM 01/28/18 05/05/22 History escitalopram oxalate 20 mg tablet 20 mg PO QAM 01/28/18 05/05/22 History isosorbide mononitrate 30 mg 30 mg PO QAM 01/28/18 05/05/22 History tablet,extended release 24 hr levothyroxine 150 mcg tablet 150 mcg PO QAM 01/28/18 05/05/22 History acetaminophen 650 mg 1,300 mg PO Q12H PRN Pain 12/03/18 05/05/22 History tablet,extended release (Tylenol Arthritis Pain) amlodipine 2.5 mg tablet 7.5 mg PO DAILY 12/02/20 05/05/22 History hydrochlorothiazide 25 mg tablet 25 mg PO DAILY 12/02/20 05/05/22 History losartan 100 mg tablet 100 mg PO DAILY 12/02/20 05/05/22 History metformin 500 mg tablet,extended 500 mg PO DAILY 12/02/20 05/05/22 History release 24 hr mometasone 50 mcg/actuation nasal 2 spray intranasal DAILY 12/02/20 05/05/22 History spray sulfamethoxazole 800 1 tab PO BID #20 tabs 04/17/22 05/05/22 Rx mg-trimethoprim 160 mg tablet (Bactrim DS) Past Med/Surg History Medical History (Updated 05/05/22 @ 16:19 by Valentine Chan PA-C) Anxiety COPD (chronic obstructive pulmonary disease) Depression Diabetes mellitus, type II DM type 2 (diabetes mellitus, type 2) diet controlled Dyslipidemia GERD (gastroesophageal reflux disease) Hypertension Hypothyroidism Osteoarthritis Surgical History History of arthroscopy of left knee History of cardiac cath 1 year ago - [facility] - no stents/angioplasty History of colonoscopy with polypectomy History of esophagogastroduodenoscopy (EGD) History of hand surgery Lt History of tooth extraction Family History Uncle Family history of diabetes mellitus Brother Family history of diabetes mellitus Mother Pancreatic cancer Social History Smoking Status: Current every day smoker Tobacco Type: Cigarettes Cigarettes Per Day: 1.5 ppd; Second Hand Exposure: No; Do You Dip or Chew Tobacco: No; Tobacco Cessation Education Requested by Patient: Yes Hx Alcohol Use: No Hx Substance Use: No Preferred Language: Ukrainian Communication Ability: Effective 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 Physical Exam Physical Exam: General Appearance: WD/WN, vitals as above, NAD, sitting up in bedside chair, pleasant, conversing easily Head: normocephalic, atraumatic Eyes: normal inspection, PERRL, conjunctivae normal, anicteric sclerae ENT: external ear and nose normal, oropharynx normal Neck: normal visual inspection, trachea midline, no thyromegaly Respiratory: normal respiratory effort, lungs clear to auscultation, no wheeze, rales, rhonchi. No accessory muscle use Cardiovascular: regular rate, rhythm, no murmur, normal peripheral pulses, no BLE edema. Vessels: no JVD Chest: normal inspection of chest Abdomen/GI: normal bowel sounds, soft, nontender, no hepatosplenomegaly : Bilateral flank pain and CVA tenderness to palpation Extremities/Musculoskeletal: no cyanosis or clubbing, extremities motor strength 5/5 Neurologic: PERRL, EOMI, accommodation nl, no face palsy, no dysarthria, CN's II-XI intact bilaterally and moves all extremities Psychiatric: A+Ox3, euthymic affect Skin: no rashes, normal color, warm/dry Results & Data Results & Data ([facility]) Vital Signs (Past 12 Hours) Vital Signs Temp Pulse Pulse Resp BP BP Pulse Ox 05/05/22 06:00 66 18 155/82 H 97 05/05/22 04:17 98 05/05/22 03:20 36.5 C 74 18 198/89 H 99 O2 Del Method 05/05/22 06:00 Room Air 05/05/22 04:17 Room Air 05/05/22 03:20 Room Air Laboratory Results Short CBC 05/05/22 Range/Units 03:40 WBC 18.68 H (4.8-10.8) K/ul Hgb 15.8 (14.0-18.0) g/dl Hct 45.0 (40.1-51.0) % Plt Count 283 (130-400) K/uL BMP 05/05/22 03:40 Sodium 135 L Potassium 3.6 Chloride 99 Carbon Dioxide 29 BUN 19 Creatinine 1.18 Glucose 153 H Calcium 10.9 H Liver Function 05/05/22 Range/Units 03:40 Total Bilirubin 0.5 (0.2-1.0) mg/dl AST 17 (13-39) U/L ALT 28 (7-52) U/L Alkaline Phosphatase 85 (34-104) U/L Albumin 4.6 (3.4-5.0) gm/dl Urine 05/05/22 Range/Units 03:40 Urine Color Yellow Urine Appearance Cloudy A (Clear) Urine pH 6.0 (4.5-7.5) Ur Specific [place] 1.021 (1.000-1.030) Urine Protein 2+ H (Negative) Urine Glucose (UA) 3+ H (Negative) Diagnostic Findings Abdomen/Pelvis CT 05/05/22 04:15 CT OF THE ABDOMEN AND PELVIS WITH CONTRAST CLINICAL HISTORY: Bilateral flank pain. Evaluate for pyelonephritis. COMPARISON STUDY: CT of the abdomen and pelvis January 16, 2022. TECHNIQUE: Following IV administration of 82 mL of Optiray, axial images of the abdomen and pelvis were obtained from the lung bases to the proximal femurs. Images were reviewed in the axial, sagittal, and coronal planes. IV contrast was administered without complication. Automated exposure control was utilized for the study. A dose lowering technique was utilized adhering to the principles of ALARA. CT DOSE: 838.50 mGy.cm FINDINGS: Lung bases are unremarkable. No pneumatosis, free air or portal venous gas is present. There is no CT evidence for pyelonephritis. The nephrograms are symmetric. A few subcentimeter bilateral renal lesions are too small to characterize. There is no hydronephrosis. No urinary calculi. Bladder wall thickening with mild adjacent stranding is again noted. This was shown on prior CT April 17, 2022. There has been interval development of urothelial thickening of the bilateral collecting systems and ureters. There is bilateral periureteral stranding. Liver, spleen, adrenal glands and pancreas are unremarkable. No evidence for a bowel obstruction. The appendix is normal. There is no lymphadenopathy. There is no fluid collection. Moderate aortoiliac plaque is present. IMPRESSION: Interval development of urothelial thickening of the bilateral collecting systems and ureters since CT of April 17, 2022 consistent with pyelitis. Findings suggestive of persistent cystitis. No CT evidence for pyelonephritis. No hydronephrosis. No urinary calculi. No abscess. ACT 112: Negative or not required by law. Electronically signed by: Oswald Kasper M.D. 05/05/2022 7:02 AM Code Status & VTE Plan VTE Prophylaxis Plan VTE Prophylaxis will be ordered: No Supervising Physician Co-Signing Physician Notes Attending addendum The patient was seen and examined in emergency room in presence of the sister Second attack of UTI likely secondary to cystitis, pyelitis with urothelial changing but no evidence of pyelonephritis as per CT scan Has had hematuria this morning No fever and or chills On examination No apparent distress at Hemodynamically stable with blood pressure on the upper side and 116/66 Chest-clear to auscultate bilaterally Heart-S1, S2 regular Abdomen-benign. Mild tenderness at renal angles and no hypogastric tenderness Extremities-negative Labs and imaging studies reviewed Assessment and plan as above and agree with JULIANNA Edwards Dr
[2022-05-05] MEDS ORDERED: ESCITALOPRAM OXALATE 20 MG TAB PO STA (09:42)
[2022-05-05] MEDS ORDERED: hydroCHLOROthiazide 25 MG TAB PO STA (09:42)
[2022-05-05] MEDS ORDERED: amLODIPine BESYLATE 5 MG TAB PO ONE (09:42)
[2022-05-05] MEDS ORDERED: LOSARTAN POTASSIUM 50 MG TAB PO STA (09:42)
[2022-05-05] MEDS ORDERED: GLUCOSE 40% GEL 15 GM TUBE PO PRN (09:47)
[2022-05-05] MEDS ORDERED: GLUCOSE 10 TAB/TUBE PO PRN (09:47)
[2022-05-05] MEDS ORDERED: GLUCAGON FOR INJ 1 MG VIAL SQ PRN (09:47)
[2022-05-05] MEDS ORDERED: CARBOHYDRATES FOR HYPOGLYCEMIA PO PRN (09:47)
[2022-05-05] MEDS ORDERED: DEXTROSE 50% 50 ML SYRINGE IV PRN (09:47)
[2022-05-05] MEDS ORDERED: ONDANSETRON INJ 2 MG/ML 2 ML VIAL IV PRN (09:56)
[2022-05-05] MEDS ORDERED: POLYETHYLENE (MIRALAX) 17 GM PACK PO PRN (09:56)
[2022-05-05] MEDS ORDERED: ACETAMINOPHEN 325 MG TAB PO PRN (09:56)
[2022-05-05] MEDS ORDERED: KETOROLAC TROMETHAMINE 15 MG/ML VIAL IV PRN (09:56)
[2022-05-05] MEDS ORDERED: ALBUTEROL HFA 8 GM INHALER INH PRN (09:56)
[2022-05-05] MEDS ORDERED: SODIUM CHLORIDE 0.9% 1000ML 1,000 ML IV SCH (09:56)
[2022-05-05] MEDS: PIPERACILLIN/TAZOBACTAM 3.375 GM in DEXTROSE 5% 100 ML IV SCH ×2 (10:47→18:17)
[2022-05-05] MEDS: NICOTINE 21 MG/24 HR TDSY TD SCH (10:47)
[2022-05-05] MEDS: INSULIN ASPART PER UNIT SC SCH ×3 (13:55→20:27)
--- NOTE | 2022-05-05 14:28 | Urology Consultation ---
Date of Consultation May 05, 2022 Assessment & Plan (1) Cystitis: (2) Acute pyelitis: 61-year-old male presented to the emergency department for evaluation of bilateral flank pain and urinary symptoms admitted for acute cystitis and pyelitis. - Pt is afebrile, nontoxic, hemodynamically stable. - Lab work reviewed creatinine 1.18, WBC 18.68. - CT imaging reviewed and notable for urothelial thickening of the bilateral collecting systems consistent with pyelitis, bladder wall thickening with mild adjacent stranding. No hydronephrosis or urinary calculi. - Urinalysis suggestive of infection, urine culture pending. - No acute intervention at this time. - Recommend continue broad-spectrum antibiotics and narrow per sensitivity data when available. - Recommend start Tamsulosin. - Monitor bladder emptying with bladder scan prn. Order placed to check a postvoid residual. - Continue supportive care, antibiotics and management per hospital medicine service. - Recommend bowel regimen to normalize bowels. - We discussed further evaluation of recurrent UTIs as an outpatient with consideration of cystoscopy. - He has an appointment with [facility] urology next week. He can keep f/u with [facility] or f/u with our service. - will follow peripherally. History of Present Illness Attending Physician: Gabriel Nunez MD History of Present Illness This is a 61-year-old male with past medical history of diabetes, COPD, dyslipidemia, hypertension, GERD, hypothyroidism and tobacco use who presented to the emergency department today with complaint of bilateral flank pain and dysuria. On arrival he was afebrile, hypertensive but otherwise hemodynamically stable. Lab work reviewed and showed an elevated white blood cell count of 18.68. Chemistry showed a sodium of 135, creatinine 1.18. Lactate 0.7. Urinalysis showed 2+ protein, 3+ glucose, 3+ blood, positive nitrates, 2+ leukocyte esterases, >30 WBC, >30 RBC, 4+ bacteria. A CT A/P with contrast showed interval development of urothelial thickening of the bilateral collecting systems and ureter since CT of April 17, 2022 suggestive of pyelitis. Bladder wall thickening with mild adjacent stranding. No urinary calculi or hydronephrosis. ER course included IV fluids, Zosyn, and ketorolac. Urology consulted for recurrent UTI. Of note, he presented to the emergency department on 04/17/2022 with urinary symptoms. He was discharged with Bactrim DS twice daily x10 days. Urine culture grew out E. coli, resistant to Bactrim. His antibiotic was switched to Keflex 500 mg twice daily x10 days. Patient seen and examined in the emergency department. He is awake, alert and resting in litter. His sister is at bedside. He is feeling better since arrival. Flank plain has improved. He is voiding spontaneously. Dysuria has improved. He notes episode of hematuria with clots since arrival, now cleared. No nausea or vomiting. No fever or chills. He reports some constipation in the last few weeks, starting around the time of prior ER presentation 2 weeks ago. Baseline urinary symptoms: nocturia 1-2 times, urinary urgency, post void dribbling. He feels he empties his bladder +/-. No prior urology evaluations. He is not taking any prostate or urinary medications. Denies family history of malignancy. He is a current smoker, 1.5 packs/day. Allergies Allergy/AdvReac Type Severity Reaction Status Date / Time No Known Allergies Allergy Mild Verified 12/02/20 13:13 Home Medications Medication Instructions Recorded Confirmed Type albuterol sulfate 90 mcg/actuation 2 - 4 puff inhalation Q6H PRN 01/28/18 05/05/22 History aerosol inhaler (Ventolin HFA) Shortness Of Breath aspirin 81 mg tablet,delayed 81 mg PO QAM 01/28/18 05/05/22 History release (Gerson Low Dose Aspirin) atorvastatin 80 mg tablet (Lipitor) 80 mg PO QPM 01/28/18 05/05/22 History escitalopram oxalate 20 mg tablet 20 mg PO QAM 01/28/18 05/05/22 History isosorbide mononitrate 30 mg 30 mg PO QAM 01/28/18 05/05/22 History tablet,extended release 24 hr levothyroxine 150 mcg tablet 150 mcg PO QAM 01/28/18 05/05/22 History acetaminophen 650 mg 1,300 mg PO Q12H PRN Pain 12/03/18 05/05/22 History tablet,extended release (Tylenol Arthritis Pain) amlodipine 2.5 mg tablet 7.5 mg PO DAILY 12/02/20 05/05/22 History hydrochlorothiazide 25 mg tablet 25 mg PO DAILY 12/02/20 05/05/22 History losartan 100 mg tablet 100 mg PO DAILY 12/02/20 05/05/22 History metformin 500 mg tablet,extended 500 mg PO DAILY 12/02/20 05/05/22 History release 24 hr mometasone 50 mcg/actuation nasal 2 spray intranasal DAILY 12/02/20 05/05/22 His tory spray sulfamethoxazole 800 1 tab PO BID #20 tabs 04/17/22 05/05/22 Rx mg-trimethoprim 160 mg tablet (Bactrim DS) Patient History Medical History Anxiety COPD (chronic obstructive pulmonary disease) Depression DM type 2 (diabetes mellitus, type 2) diet controlled Dyslipidemia GERD (gastroesophageal reflux disease) Hypertension Hypothyroid Osteoarthritis Surgical History History of arthroscopy of left knee History of cardiac cath 1 year ago - [facility] - no stents/angioplasty History of colonoscopy with polypectomy History of esophagogastroduodenoscopy (EGD) History of hand surgery Lt History of tooth extraction Family History Uncle Family history of diabetes mellitus Brother Family history of diabetes mellitus Mother Pancreatic cancer Social History Smoking Status: Current every day smoker Tobacco Type: Cigarettes Cigarettes Per Day: 1.5 ppd; Second Hand Exposure: Yes; Hx Alcohol Use: No Hx Substance Use: No Preferred Language: Tristanian Communication Ability: Effective 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 Beliefs That Will Affect Care: None Current Living Situation: Spouse Feels Safe at Home: Yes Assistive Devices: Denture - Upper, Denture - Lower and Glasses Review of Systems Review of Systems: All systems reviewed & are unremarkable except as noted in HPI & below Physical Exam Constitutional: well developed and well nourished; no acute distress and not ill appearing Eyes: no scleral abnormality Neck: normal visual inspection Respiratory: normal respiratory effort and able to speak in complete sentences; no respiratory distress and no labored breathing Cardiovascular: Extremities: no pedal edema Gastrointestinal (Abdomen): Inspection/Auscultation: abdomen normal to inspection; abdomen not distended Percussion/Palpation: abdomen soft; abdomen nontender and no guarding Musculoskeletal: Head/Neck/Chest: normocephalic and head atraumatic Skin: no visible rashes Neurologic: moves all extremities and awake Psychiatric: Orientation: alert and oriented x 3 Genitourinary: no CVA tenderness Results & Data ([facility]) Vital Signs (Past 12 Hours) Vital Signs Temp Pulse Pulse Resp BP BP Pulse Ox 05/05/22 10:04 69 18 173/77 H 97 05/05/22 09:09 59 L 18 186/82 H 97 05/05/22 06:00 66 18 155/82 H 97 05/05/22 04:17 98 05/05/22 03:20 36.5 C 74 18 198/89 H 99 O2 Del Method 05/05/22 10:04 Room Air 05/05/22 09:09 Room Air 05/05/22 06:00 Room Air 05/05/22 04:17 Room Air 05/05/22 03:20 Room Air PG Care Time/CCT Total # of Minutes Spent Total Time Spent with Patient: Total time spent is greater than 50% in coordination of care (as documented) at patient's floor/unit and/or counseling patient: Coding Level of Care Code INP/OBS CONSULT LVL 4, 60 MIN Diagnoses Cystitis N30.90 Acute pyelitis N10
[2022-05-05] MEDS: TAMSULOSIN HCL 0.4 MG CAP PO SCH (17:06)
[2022-05-05] MEDS: DOCUSATE SODIUM 100 MG CAP PO SCH (20:19)
[2022-05-05] MEDS ORDERED: ATORVASTATIN 40 MG TAB PO SCH (21:00)
[2022-05-06] MEDS ORDERED: levoFLOXacin 750 MG TAB PO SCH
[2022-05-06] MEDS: PIPERACILLIN/TAZOBACTAM 3.375 GM in DEXTROSE 5% 100 ML IV SCH ×2 (02:26→11:36)
[2022-05-06] MEDS ORDERED: LEVOTHYROXINE SODIUM 150 MCG TABLET PO SCH (06:30)
[2022-05-06 06:44] LABS: Basophils # (auto) 0.05 K/uL (0-0.2); Basophils % (auto) 0.6 %; Eosinophils # (auto) 0.13 K/uL (0-0.50); Eosinophils % (auto) 1.6 %; Hematocrit (blood only) 41.6 % (40.1-51.0); Hemoglobin 14.6 g/dl (14.0-18.0); Immature Granulocytes # (auto) 0.03 K/uL (0.00-0.02); Immature Granulocytes % (auto) 0.4 %; Lymphocytes # (auto) 1.49 K/uL (1.2-3.4); Mean Corpuscular Hemoglobin 30.5 pg (25.0-34.0); Mean Corpuscular Hgb Conc 35.1 g/dL (32.0-36.0); Mean Platelet Volume 9.5 fL (9.4-12.4); Monocytes # (auto) 0.59 K/uL (0.24-0.82); Monocytes % (auto) 7.1 %; Neutrophils # (auto) 5.99 K/uL (1.4-6.5); Neutrophils % (auto) 72.3 %; Platelet Count 236 K/uL (130-400); RDW Coefficient of Variation 13.6 % (11.5-14.5); RDW Standard Deviation 42.7 fL (36.4-46.3); Red Blood Count 4.78 M/uL (4.63-6.08); White Blood Count 8.28 K/ul (4.8-10.8)
[2022-05-06 07:09] LABS: Estimated Average Glucose 212 mg/dl
[2022-05-06 07:15] LABS: BUN Creatinine Ratio 18.2 (10-20); Calcium 10.1 mg/dl (8.5-10.1); Creatinine Clr Calc Pharmacy 93.9 ml/min; Est GFR (African American) 96.2 ml/min; Potassium 3.9 mmol/L (3.5-5.1)
[2022-05-06] MEDS ORDERED: FLUTICASONE PROPIONATE NA SPR 16 GM BTL SCH (09:00)
[2022-05-06] MEDS ORDERED: ISOSORBIDE MONO EXTENDED REL 30 MG TABCR PO SCH (09:00)
[2022-05-06] MEDS ORDERED: LOSARTAN POTASSIUM 50 MG TAB PO SCH (09:00)
[2022-05-06] MEDS ORDERED: ESCITALOPRAM OXALATE 20 MG TAB PO SCH (09:00)
[2022-05-06] MEDS ORDERED: hydroCHLOROthiazide 25 MG TAB PO SCH (09:00)
[2022-05-06] MEDS ORDERED: amLODIPine BESYLATE 5 MG TAB PO SCH (09:00)
[2022-05-06] MEDS: NICOTINE 21 MG/24 HR TDSY TD SCH (09:01)
[2022-05-06] MEDS: DOCUSATE SODIUM 100 MG CAP PO SCH (09:02)
[2022-05-06] MEDS: TAMSULOSIN HCL 0.4 MG CAP PO SCH (09:03)
[2022-05-06] MEDS: INSULIN ASPART PER UNIT SC SCH ×2 (09:43→13:50)
--- NOTE | 2022-05-06 13:33 | Discharge Summary ---
Date of Service May 06, 2022 Admission HPI Per Admitting Provider This is a 61-year-old male with PMH of type 2 diabetes, COPD, dyslipidemia, hypothyroidism, sleep apnea with nocturnal hypoxemia, paroxysmal SVT, tobacco use disorder, mood disorder and other medical problems listed below who presents with continued urinary symptoms. Was initially seen in the ER on 04/17 and found to have UTI and discharged on Bactrim course. Urine culture grew E. coli resistant to Bactrim and patient was called in Keflex for 10-day course. Unclear whether or not patient switched to Keflex antibiotic but did feel improved after a week of treatment before symptoms resumed including dysuria, i ncreased urgency and frequency as well as passing some blood clots since yesterday. Also with flank pain and lower back pain since yesterday, prompting visit to ED. Smokes 1-1/2 to 2 packs/day and has done so for the past 40 years. Has been taking all medication as scheduled except he ran out of isosorbide mononitrate. Denies any fever, chills, lightheadedness, chest pain, shortness of breath, nausea, vomiting, abdominal pain. Has had issues with constipation over the past few weeks and has had to take a laxative which has resolved issues. Last had loose stool yesterday. Endorses decreased appetite over the past week in setting of infection. Denies any unintentional weight loss or night sweats. Denies history of known kidney stones. Admission Exam Per Admitting Provider General Appearance:WD/WN, vitals as above, NAD, sitting up in bedside chair, pleasant, conversing easily Head: normocephalic, atraumatic Eyes:normal inspection, PERRL, conjunctivae normal, anicteric sclerae ENT: external ear and nose normal, oropharynx normal Neck: normal visual inspection, trachea midline, no thyromegaly Respiratory:normal respiratory effort, lungs clear to auscultation, no wheeze, rales, rhonchi. No accessory muscle use Cardiovascular: regular rate, rhythm, no murmur, normal peripheral pulses, no BLE edema. Vessels: no JVD Chest: normal inspection of chest Abdomen/GI: normal bowel sounds, soft, nontender, no hepatosplenomegaly :Bilateral flank pain and CVA tenderness to palpation Extremities/Musculoskeletal: no cyanosis or clubbing, extremities motor strength 5/5 Neurologic: PERRL, EOMI, accommodation nl, no face palsy, no dysarthria, CN's II-XI intact bilaterally and moves all extremities Psychiatric:A+Ox3, euthymic affect Skin: no rashes, normal color, warm/dry Principal Diagnosis Acute pyelitis Complicated UTI Hematuria Discharge Exam GENERAL: Alert and oriented x3. NAD, on RA. Obese class I. HEENT: No pallor, no icterus. Pupils equal, round and reactive to light. Oral mucosa moist. NECK: No JVD, no neck masses. HEART: S1 and S2 heard. Regular rate and rhythm. No murmur, no gallop. RESPIRATORY SYSTEM: Normal AP diameter. No accessory muscle use. No wheezing, no crackles. ABDOMEN: Soft, bowel sounds present, nontender, no distention. CENTRAL NERVOUS SYSTEM: No facial droop. Speech is clear. Obeys simple commands. Moves extremities. EXTREMITIES: No edema, no erythema seen. Discharge Data Allergies Allergy/AdvReac Type Severity Reaction Status Date / Time No Known Allergies Allergy Mild Verified 12/02/20 13:13 Consultations 05/05/22 07:34 ED Decision to Admit Stat 05/05/22 09:45 Consult Urology Routine Ordered Studies 05/05/22 04:15 CT Abd and Pelvis [CT abd pelvis IV con only] Urgent Hospital Course (1) Acute pyelitis: (2) Complicated UTI (urinary tract infection): (3) Diabetes mellitus, type II: (4) GERD (gastroesophageal reflux disease): (5) COPD (chronic obstructive pulmonary disease): (6) Hypertension: (7) Hypothyroidism: (8) Dyslipidemia: Plan This is a 61-year-old male with PMH of type 2 diabetes, COPD, dyslipidemia, hypothyroidism, sleep apnea with nocturnal hypoxemia, paroxysmal SVT, tobacco use disorder, mood disorder and other medical problems listed below who presents with continued urinary symptoms and found to have complicated UTI. He was managed for the following: Complicated UTI, acute pyelitis Seen in the ER on 04/17 and found to have UTI and discharged on Bactrim course. Urine culture grew E. coli resistant to Bactrim and patient was called in Keflex for 10-day course ? Unclear whether or not patient switched antibiotics Presenting with urinary symptoms as well as flank and lower back pain, hematuria since 1 day CHECK WEIGHER. Afebrile, WBC 18, UA abnormal, urine culture pending at admission. CT abd/pelvis with interval development of urothelial thickening of the bilateral collecting systems and ureters since CT of April 17, 2022 cons istent with pyelitis. Findings suggestive of persistent cystitis. No CT evidence for pyelonephritis. No hydronephrosis. No urinary calculi. No abscess Was on empiric Zosyn, patient would like to go home today and ensured me that he will follow-up with his PCP/urology for final results on his urine culture for tailoring his antibiotic recommendation. He is being discharged on levofloxacin Evaluated by urology given complicated UTI - no need for urologic intervention at this time, continue Zosyn, start flomax, checking a postvoid residual, OP cystoscopy, outpatient follow up ---> patient to follow-up with urology as an outpatient. DM II Hold home agents SSI while in-patient BSG AC HS Constipation Recent issues with constipation requiring laxatives No evidence of bowel obstruction on CT abd/pelvis Colace 100mg BID , patient can use jflr-fad-aqnvaol laxatives as needed for constipation. HTN Given missed AM meds in ED Continue amlodipine, HCTZ, losartan Dyslipidemia Continue statin Hypothyroidism Continue levothyroxine COPD Ongoing tobacco use Not interested in cessation. ~70-80 pack years. COPD at baseline. Continue albuterol inh PRN Mood disorder Continue SSRI DVT Ppx: SQ lovenox Code status: FULL PCP: Winston Dispo: Admitted to med/surg Patient being discharged to home with following instruction at the point of discharge: Follow-up with your primary care physician within a week time and likely you will need blood labs CBC/CMP. Also follow-up on the final results of your urine culture this admission with either your primary care office or your urology doctor. You will be discharged on oral antibiotic, take medications as prescribed. Maintain follow-up with urology as you will likely need evaluation with cystoscopy. You can use zvby-jft-kfepilu laxatives as needed for constipation. Take your medications as prescribed. Please make sure that you are able to get your medications today by calling your pharmacy before you leave the hospital so that your treatment continuity is not broken. [facility] Attestation I certify that this patient is under my care and that I, or a physicians research lab assistant working with me, had a face to-face encounter that meets the home health lzxj-kq-yejn encounter requirements with this patient. The encounter with the patient was in whole, or in part, for the following medical condition, which is the primary reason for home health care (list medical condition): I certify that, based on my findings, the following services are medically necessary home health services: My clinical findings support the need for the above services because: Further, I certify that my clinical findings support that this patient is homebound (i.e. absences from home require considerable and taxing effort and are for medical reasons or rastafari services or infrequently or of short duration when for other reasons) because: Certification for Home Health Services: Based on the above findings, I certify that this patient is confined to the home and needs intermittent correction care, physical therapy and/or speech therapy or continues to need occupational therapy. The patient is under my care, and I have initiated the establishment of the plan of care. This patient will be followed by a physician who will periodically review the plan of care. Total Time Total Time Spent Total Time Spent (In Minutes): 50 Discharge Plan Discharge Items Patient Disposition: Home - Self-Care Reason For Visit: COMPLICATED UTI Discharge Diagnosis: Acute pyelitis Complicated UTI Hematuria Activity: Resume your previous activity Non-emergency contact: Primary Care Provider Call non-emergency contact if: you have any medication questions, your symptoms worsen and your temperature is above 101 Follow-up/Referrals: Shelley Montero, [Primary Care Provider] - Diet: Carb Consistent or DM2 and Heart Healthy Addtl Attending Provider Instructions: Follow-up with your primary care physician within a week time and likely you will need blood labs CBC/CMP. Also follow-up on the final results of your urine culture this admission with either your primary care office or your urology doctor. You will be discharged on oral antibiotic, take medications as prescribed. Maintain follow-up with urology as you will likely need evaluation with cystoscopy. You can use [id number]-[id number] laxatives as needed for constipation. Take your medications as prescribed. Please make sure that you are able to get your medications today by calling your pharmacy before you leave the hospital so that your treatment continuity is not broken. Pending Studies at Discharge: Yes (Admitting blood and urine cultures.) Stand-Alone Forms: My [employer], Smoking Cessation Medications and DC Order Prescriptions: New levofloxacin 750 mg Tablet 750 mg PO DAILY@1100 5 Days Qty: 5 0RF nicotine [Nicoderm CQ] 21 mg/24 hr Patch 24 Hour 21 mg transdermal QAM 28 Days Qty: 28 0RF tamsulosin 0.4 mg Capsule 0.4 mg PO QAM Qty: 30 0RF Continued atorvastatin [Lipitor] 80 mg tablet 80 mg PO QPM isosorbide mononitrate 30 mg tablet extended release 24 hr 30 mg PO QAM levothyroxine 150 mcg tablet 150 mcg PO QAM escitalopram oxalate 20 mg tablet 20 mg PO QAM aspirin [Gerson Low Dose Aspirin] 81 mg Tablet,Delayed Release (Dr/Ec) 81 mg PO QAM albuterol sulfate [Ventolin HFA] 90 mcg/actuation Hfa Aerosol Inhaler 2 - 4 puff INHALATION Q6H PRN (Reason: Shortness Of Breath) acetaminophen [Tylenol Arthritis Pain] 650 mg Tablet Extended Release 1,300 mg PO Q12H PRN (Reason: Pain) amlodipine 2.5 mg tablet 7.5 mg PO DAILY mometasone 50 mcg/actuation spray,non-aerosol 2 spray INTRANASAL DAILY hydrochlorothiazide 25 mg tablet 25 mg PO DAILY losartan 100 mg tablet 100 mg PO DAILY metformin 500 mg tablet extended release 24 hr 500 mg PO DAILY Discontinued sulfamethoxazole-trimethoprim [Bactrim DS] 800-160 mg tablet 1 tab PO BID Qty: 20 0RF Discharge Orders: Discharge Order (Routine); Ordered 05/06/22 Ordered By: Nely Luna Admission Data Admit Date/Time: 05/05/22 07:46 Attending Provider: Nely Luna Admit Provider: Gabriel Nunez Primary Care Provider: Shelley Montero Other Providers: Gabriel Nunez ; Don Sevilla
[2022-05-07] MEDS ORDERED: levoFLOXacin 750 MG TAB PO SCH (11:00)
== END 2022-05-06 17:49 | disposition home or self-care (01) | DRG 690 ==
LOC: ED 03:15 → EDINP 07:46 → SUATTDRO 07:46 → 3N 09:45